=== PATIENT | male | born 1975 | race Caucasian/White ===

== ENCOUNTER 2020-09-24 18:10 | Emergency (ER) | payer BC, SELFPAY ==
--- NOTE | 2020-09-24 18:18 | ED.EYEPROB ---
HPI - Eye Problem General Chief complaint: Eye Problems Stated complaint: eye problems Time Seen by Provider: 09/24/20 18:18 Source: patient Mode of arrival: ambulatory Limitations: no limitations History of Present Illness HPI Narrative: right eye matted shut this am itchy no pain no injury no vision loss. chief complaint: eye redness Onset description: awoke with symptoms Location: right eye Eye Symptoms: itching Place: home Mechanism: none Severity: mild Related Data Patient tetanus UTD: Yes Home Medications Medication Instructions Recorded Confirmed citalopram 20 mg DAILY 09/24/20 09/24/20 lisinopril-hydrochlorothiazide 1 tablet DAILY 09/24/20 09/24/20 Allergies Allergy/AdvReac Type Severity Reaction Status Date / Time No Known Allergies Allergy Mild Unverified 01/19/12 14:08 Review of Systems Review of Systems: Narrative: CONSTITUTIONAL: Denies fever, chills, or sweats. EYES left eye: Denies visual changes, redness, or discharge.right eye itchy matted shut this am ENT: Denies rhinorrhea, congestion, sore throat, or otalgia. CARDIOVASCULAR: Denies chest pain, palpitations, or edema. RESPIRATORY: Denies cough or dyspnea. GASTROINTESTINAL: Denies abdominal pain, nausea, vomiting, or diarrhea. GENITOURINARY: Denies dysuria or hematuria. SKIN: Denies rash or itching. MUSCULOSKELETAL: Denies back pain, joint pain, or myalgia. NEUROLOGIC: Denies headache, numbness, or weakness. PSYCHIATRIC: Denies anxiety or depression. PMFSH Social History Social History Gender identity (if verbalized by the patient): Male Comments At time of signature, agree with nursing past medical, surgical, social and family history. There is no relevant family history pertinent to the presenting complaint Critical dx considered and discussed with pt. Educated patient on red flag s/s and to go to ED if s/s occur. Discussed with pt when to return to [facility] or primary care provider. Pt gave verbal undertstanding, all questions were answered, and pt was agreeable to plan Exam Narrative: Exam Narrative: GENERAL: Well-appearing, well-nourished, and in no acute distress. HEAD: Normocephalic, atraumatic. EYES: PERRLA and EOMI. right eye no abrasion positive for conjunctivitis. ENT: Nares clear, no rhinorrhea or epistaxis. Mucous membranes moist. NECK: Supple. CHEST: Clear to auscultation. No respiratory distress. HEART: Regular rate and rhythm. No murmur heard. Normal peripheral pulses. ABDOMEN: Soft, nontender, nondistended, normal active bowel sounds. EXTREMITIES: Normal range of motion. No edema. SKIN: Warm, dry, no rash. NEURO: No focal deficits. Alert and oriented x3. Lion Coma Scale Eye Opening: Spontaneous 4 [place] Coma Scale Motor: Obeys Commands 6 [place] Coma Scale Verbal: Oriented 5 [place] Coma Scale Total 15 Course Vital Signs Vital signs: Vital Signs Temperature 36.6 C 09/24/20 18:24 Pulse Rate 74 09/24/20 18:24 Respiratory Rate 18 09/24/20 18:24 Blood Pressure 118/64 09/24/20 18:24 Pulse Oximetry 97 09/24/20 18:24 Temperature 36.6 C 09/24/20 18:24 Pulse Rate 74 09/24/20 18:24 Respiratory Rate 18 09/24/20 18:24 Blood Pressure 118/64 09/24/20 18:24 Pulse Oximetry 97 09/24/20 18:24 MDM - Eye Problem Differential Diagnosis Differential diagnosis: Likely corneal abrasion, conjunctivitis, acute iritis and periorbital cellulitis Medical Records Attestation: I reviewed the patient's medical records. Lab Data Attestation: I reviewed the patient's lab results. Critical Care Time Critical Care Time Critical Care Time: No Discharge Plan Discharge Clinical Impression: Conjunctivitis Patient Disposition: Home, Self-Care Condition: Stable Instructions: Antibiotic Form, Conjunctivitis (ED) Additional Instructions: Conjunctivitis is spread by [id number] contact or by touching a contaminated surface. You can use artificial tears, cold and warm
[2020-09-24 18:24] VITALS: BP 118/64; PULSE 74; RESP 18; TEMP 36.6; O2SAT 97
== END 2020-09-24 18:28 | disposition home or self-care (01) ==
PROVIDERS: Emergency Provider Nurse Practitioner Family; PCP Internal Medicine
DX: H10.9 Unspecified conjunctivitis (principal); I10 Essential (primary) hypertension; F32.9 Major depressive disorder, single episode, unspecified
CPT/HCPCS: 99213; G0463